=== PATIENT | female | born 1975 | race Caucasian/White ===

== ENCOUNTER 2017-07-15 13:37 | Emergency (ER) | END 2017-07-15 18:45 | disposition home or self-care (01) ==

== ENCOUNTER 2017-10-12 14:01 | Emergency (ER) | END 2017-10-12 15:40 | disposition home or self-care (01) ==

== ENCOUNTER 2017-11-23 15:34 | Emergency (ER) | END 2017-11-23 17:15 | disposition home or self-care (01) ==

== ENCOUNTER 2018-01-04 22:58 | Emergency (ER) | END 2018-01-05 02:07 | disposition home or self-care (01) ==

== ENCOUNTER 2018-02-15 | Inpatient (IN) | END 2018-02-16 12:45 | disposition home or self-care (01) | DRG 313 ==

== ENCOUNTER 2018-04-22 20:12 | Inpatient (IN) | END 2018-04-24 12:30 | disposition home or self-care (01) | DRG 282 ==

== ENCOUNTER 2018-10-04 23:14 | Emergency (ER) | payer OTHER ==
[~2018-10-04] VITALS: Ht 167.6 cm; Wt 85.5 kg
[~2018-10-04 23:14] MED LIST: ASPI-817 PO; ATOR-2 PO; CITA10TA5 PO; DOLU50TA PO; ESTR1TAB23 PO; IMIQ1CRE14 TOP; LORA1TAB PO; METO-448 PO; NITR0.4T39 SL; TRA100 PO; TRUV PO
[2018-10-04 23:19] VITALS: BP 163/90; PULSE 58; RESP 17; Ht 167.6 cm; Wt 85.5 kg
[2018-10-05] MEDS ORDERED: KETOROLAC 30 MG INJ IM STA (03:42)
[2018-10-05] MEDS ORDERED: HYDROCODONE/APAP (5/325) TAB PO ONE (05:00)
[2018-10-05] MEDS ORDERED: HYDR-4011 PO (05:29)
--- NOTE | 2018-10-05 05:31 | ERD ---
ER Documentation Chief Complaint Chief Complaint dental pain x2 days. no fever ROS All systems reviewed and are negative except as per history of present illness. Medications Home Meds Active Scripts Hydrocodone/Acetaminophen ([place] 5-325 Tablet) 1 Each Tablet, 1 EACH PO Q6H PRN for PAIN, #15 TAB Prov:LOY CORONA DO 10/05/18 Metoprolol Tartrate* (Lopressor*) 25 Mg Tab, 25 MG PO DAILY, #30 TAB Prov:MERLY SELLERS NP 04/24/18 Reported Medications Imiquimod (Imiquimod) 5% Cream.pack, 1 PACKET TOP, EA 02/15/18 Dolutegravir Sodium (Tivicay) 50 Mg Tablet, 50 MG PO DAILY, TAB 02/15/18 Citalopram Hydrobromide* (Citalopram Hydrobromide*) 10 Mg Tablet, 10 MG PO DAILY, #30 TAB 02/14/18 Nitroglycerin* (Nitrostat*) 0.4 Mg Tab.subl, 0.4 MG SL Q5MIN PRN for CHEST PAIN, BOTTLE 02/14/18 Estradiol* (Estrace*) 1 Mg Tablet, 1 MG PO BID, TAB 10/12/17 Emtricitabine-Tenofovir* (Truvada*) 200-300 Mg Tab, 1 TAB PO DAILY, TAB 10/12/17 Trazodone Hcl* (Trazodone Hcl*) 100 Mg Tablet, 100 MG PO QHS, #30 TAB 10/12/17 Atorvastatin* (Atorvastatin*) 80 Mg Tablet, 80 MG PO QHS, #30 TAB 10/12/17 Aspirin* (Aspirin* EC) 81 Mg Tablet.dr, 81 MG PO DAILY, TAB 10/12/17 Lorazepam* (Lorazepam*) 1 Mg Tablet, 1 MG PO QAM for ANXIETY, #30 TAB 10/12/17 Allergies Allergies: Coded Allergies: No Known Allergy (Unverified , 04/22/18) PMhx/Soc History of Surgery: No (BREAST AUGMENTATION) Anesthesia Reaction: Yes Hx Neurological Disorder: No Hx Respiratory Disorders: No Hx Cardiac Disorders: Yes (HX HTN) Hx Psychiatric Problems: Yes (anxiety, depression) Hx Miscellaneous Medical Probl: Yes (HAD A COLONOSCOPY) Hx Alcohol Use: No Hx Substance Use: No Hx Tobacco Use: No Smoking Status: Never smoker Physical Exam Vitals Vital Signs Date Temp Pulse Resp B/P (MAP) Pulse Ox O2 O2 Flow FiO2 Time Delivery Rate 10/04/18 98.2 58 17 163/90 97 23:19 (114) Physical Exam Const: No acute distress Head: Atraumatic Eyes: Normal Conjunctiva ENT: Normal External Ears, Nose and Mouth. Neck: Full range of motion. No meningismus. Resp: Clear to auscultation bilaterally Cardio: Regular rate and rhythm, no murmurs Abd: Soft, non tender, non distended. Normal bowel sounds Skin: No petechiae or rashes Back: No midline or flank tenderness Ext: No cyanosis, or edema Neur: Awake and alert Psych: Normal Mood and Affect Results 24 hrs Laboratory Tests Test 10/05/18 04:04 POC Beta HCG, Qualitative NEGATIVE Current Medications Medications Dose Sig/Jorge Start Time Status Last (Trade) Ordered Route PRN Stop Time Admin Dose Reason Admin Ketorolac 30 mg ONCE STAT 10/05/18 DC 10/05/18 Tromethamine IM 03:42 10/05/18 04:13 (Toradol) 03:43 1 tab ONCE ONCE 10/05/18 DC 10/05/18 Acetaminophen PO 05:00 10/05/18 05:04 / 05:01 Hydrocodone Bitart ([place] (5/325)) Departure Diagnosis: Primary Impression: Toothache Condition: Fair Patient Instructions: Dental Pain Additional Instructions: Call your primary care doctor TOMORROW for an appointment during the next 1-2 days.See the doctor sooner or return here if your condition worsens before your appointment time. LOY CORONA DO October 05, 2018 05:31
== END 2018-10-05 05:34 | disposition home or self-care (01) ==
LOC: E/R 23:14
DX: K08.89 Other specified disorders of teeth and supporting structures (principal); I10 Essential (primary) hypertension; Z79.82 Long term (current) use of aspirin
CPT/HCPCS: 81025; 96372; J1885; Z7502; Z7610